=== PATIENT | female | born 1945 | race Caucasian/White ===

== ENCOUNTER 2018-05-28 13:46 | Emergency (ER) | payer MEDICARE ==
[~2018-05-28] VITALS: Ht 162.6 cm; Wt 99.8 kg
[2018-05-28 15:21] LABS: BASOPHILS # (AUTO) 0.1 (0.0-0.1); BASOPHILS % 0.6 % (0.0-1.0); EOSINOPHILS # (AUTO) 0.3 (0.0-0.4); EOSINOPHILS % 2.3 % (0.0-6.0); HEMATOCRIT 49.1 % (34.2-44.1); HEMOGLOBIN 15.8 g/dL (12.0-16.0); LYMPHOCYTES # (AUTO) 2.4 (1.0-3.2); LYMPHOCYTES % 20.4 % (18.0-39.1); MEAN CORPUSCULAR HEMOGLOBIN 29.6 pg (28-32); MEAN CORPUSCULAR HGB CONC 32.2 g/dL (31-35); MEAN CORPUSCULAR VOLUME 91.9 fL (81-99); MONOCYTES # (AUTO) 0.8 (0.2-0.8); MONOCYTES % 6.5 % (4.4-11.3); NEUTROPHILS # (AUTO) 8.2 (2.1-6.9); NEUTROPHILS % 69.9 % (38.7-80.0); PLATELET COUNT 272 x10e3/uL (140-360); RED BLOOD COUNT 5.34 x10e6/uL (3.6-5.1); RED CELL DISTRIBUTION WIDTH 13.1 % (11.7-14.4)
[2018-05-28 15:38] LABS: ALBUMIN 3.7 g/dL (3.5-5.0); ALBUMIN/GLOBULIN RATIO 0.9 (0.8-2.0); ANION GAP 16.7 mmol/L (8-16); CALCIUM 9.6 mg/dL (8.4-10.2); CREATININE, SERUM 1.02 mg/dL (0.57-1.11); POTASSIUM 3.7 mmol/L (3.5-5.1)
[2018-05-28 17:20] LABS: CLARITY,URINE CLOUDY (CLEAR); COLOR,URINE YELLOW (YELLOW); LEUKOCYTE ESTERASE ,URINE 2+ (NEGATIVE); NITRITE,URINE POSITIVE (NEGATIVE); PROTEIN,URINE DIPSTICK NEGATIVE (NEGATIVE)
[2018-05-28 17:21] LABS: BILIRUBIN,URINE NEGATIVE (NEGATIVE); KETONES,URINE NEGATIVE (NEGATIVE); URINE UROBILINOGEN 0.2 mg/dL (0.2 - 1)
[2018-05-28 17:30] LABS: BACTERIA,URINE MANY /HPF; EPITHELIAL CELLS,URINE MODERATE /LPF; RBC,URINE >50 /HPF (0-5); WBC,URINE (MAN) >50 /HPF (0-5)
[2018-05-28] MEDS ORDERED: CEFTRIAXONE SOD 1 GM VIAL IV ONE (17:45)
--- NOTE | 2018-05-28 18:33 | Diagnostic Imaging Report ---
EXAM: CT Abdomen and Pelvis WITHOUT contrast INDICATION: Right flank pain. COMPARISON: None. TECHNIQUE: Abdomen and pelvis were scanned utilizing a multidetector helical scanner from the lung base to the pubic symphysis without administration of IV contrast. Absence of intravenous contrast decreases sensitivity for detection of focal lesions and vascular pathology. Coronal and sagittal reformations were obtained. Routine protocol was performed. IV CONTRAST: None. ORAL CONTRAST: Water RADIATION DOSE: Total DLP: 911.95 mGy*cm Estimated effective dose: (DLP x 0.015 x size factor) mSv COMPLICATIONS: None FINDINGS: LINES and TUBES: None. LOWER THORAX: Coronary artery and aortic valve calcifications. Mild bibasilar subsegmental atelectasis. HEPATOBILIARY: Hepatic steatosis. No focal hepatic lesions. No biliary ductal dilation. GALLBLADDER: No radio-opaque stones or sludge. No wall thickening. SPLEEN: No splenomegaly. PANCREAS: No focal masses or ductal dilatation. ADRENALS: 1.4 cm left adrenal adenoma. No right adrenal nodules KIDNEYS/URETERS: No Mildly prominent right external pelvis versus pelviectasis without ureteral dilatation. Right renal cysts, the largest in the anterior interpolar region measuring 4.9 cm. No stones. GI TRACT: No abnormal distention, wall thickening, or evidence of bowel obstruction. Appendix is normal. PELVIC ORGANS/BLADDER: Calcified uterine leiomyoma. LYMPH NODES: No lymphadenopathy. VESSELS: There is moderate atherosclerotic disease in the aorta and major arterial branches. PERITONEUM / RETROPERITONEUM: No free air or fluid. BONES: There are degenerative changes in the lumbar spine. Dextroscoliosis of the lumbar spine. Remote healed right-sided rib fracture. SOFT TISSUES: Unremarkable. IMPRESSION: 1. Mild dilatation of the left renal pelvis without ureteral dilatation may represent a prominent extrarenal pelvis versus mild pelviectasis. No definite ureteral calculus. Signed by: Dr. Alba Mccauley M.D. on 05/28/2018 6:21 PM
== END 2018-05-28 19:27 | disposition home or self-care (01) ==
LOC: ER 13:46
DX: M54.5 Low back pain (principal); R10.9 Unspecified abdominal pain; R11.0 Nausea; N30.91 Cystitis, unspecified with hematuria; I10 Essential (primary) hypertension; E78.5 Hyperlipidemia, unspecified
CPT/HCPCS: 36415; 74176; 80053; 81001; 85025; 87086; 87186; 99284; J0696

== ENCOUNTER 2020-08-02 13:00 | Emergency (ER) | payer MEDICARE ==
[~2020-08-02] VITALS: Ht 162.6 cm; Wt 99.8 kg
--- NOTE | 2020-08-02 13:25 | NUR ---
off o2 at this time per dr. larose.
[2020-08-02 13:27] LABS: BASOPHILS # (AUTO) 0.1 (0.0-0.1); BASOPHILS % 0.7 % (0.0-1.0); EOSINOPHILS # (AUTO) 0.1 (0.0-0.4); EOSINOPHILS % 1.4 % (0.0-6.0); HEMATOCRIT 44.2 % (34.2-44.1); HEMOGLOBIN 14.1 g/dL (12.0-16.0); LYMPHOCYTES # (AUTO) 1.1 (1.0-3.2); LYMPHOCYTES % 10.9 % (18.0-39.1); MEAN CORPUSCULAR HEMOGLOBIN 29.6 pg (28-32); MEAN CORPUSCULAR HGB CONC 31.9 g/dL (31-35); MEAN CORPUSCULAR VOLUME 92.9 fL (81-99); MONOCYTES # (AUTO) 0.7 (0.2-0.8); MONOCYTES % 6.4 % (4.4-11.3); NEUTROPHILS # (AUTO) 8.2 (2.1-6.9); NEUTROPHILS % 80.2 % (38.7-80.0); PLATELET COUNT 200 x10e3/uL (140-360); RED BLOOD COUNT 4.76 x10e6/uL (3.6-5.1); RED CELL DISTRIBUTION WIDTH 13.4 % (11.7-14.4)
[2020-08-02] MEDS ORDERED: ASPIRIN 81 MG CHEW TAB PO ONE (13:30)
--- NOTE | 2020-08-02 13:31 | NUR ---
placed back on 02; sats down to 87% on room air.
[2020-08-02 13:47] LABS: INR 0.93; PROTHROMBIN TIME 12.9 seconds (11.9-14.5)
[2020-08-02] MEDS ORDERED: SODIUM CHLORIDE 0.9% 1000ML 1,000 ML IV STA (13:47)
[2020-08-02 13:49] LABS: ALBUMIN 3.4 g/dL (3.5-5.0); ANION GAP 16.5 mmol/L (8-16); CALCIUM 8.8 mg/dL (8.4-10.2); CREATININE, SERUM 1.17 mg/dL (0.57-1.11); POTASSIUM 3.5 mmol/L (3.5-5.1)
[2020-08-02 13:52] LABS: B-TYPE NATRIURETIC PEPTIDE2 284.3 pg/mL (0-100)
[2020-08-02 13:55] LABS: CREATINE KINASE MB 1.6 ng/mL (0-5.0)
[2020-08-02] MEDS ORDERED: AZITHROMYCIN 500MG/NS 250 ML 250 ML IV SCH (14:00)
[2020-08-02] MEDS ORDERED: CEFTRIAXONE SOD 1 GM/NS 50 ML 50 ML IV SCH (14:00)
--- NOTE | 2020-08-02 14:22 | Diagnostic Imaging Report ---
EXAMINATION: CHEST SINGLE (PORTABLE) INDICATION: SHORT OF BREATH COMPARISON: None FINDINGS: TUBES and LINES: None. LUNGS: Normal lung volumes. Lungs are clear. No consolidations. PLEURA: No pleural effusion or pneumothorax. HEART AND MEDIASTINUM: There is curvilinear high density structure in the right paramediastinum. Atherosclerotic calcification of the thoracic aortic knob. BONES AND SOFT TISSUES: No acute osseous lesion. Soft tissues are unremarkable. UPPER ABDOMEN: No free air under the diaphragm. IMPRESSION: 1. Curvilinear high density structure in the right paramediastinum which may represent thoracic aortic aneurysm. Recommend contrast-enhanced CT of the chest for further evaluation. 2. No focal consolidation, pleural effusion or pneumothorax. Signed by: Sergio Warren MD on 08/02/2020 2:19 PM
--- NOTE | 2020-08-02 14:29 | Emergency Department Note ---
History of Present Illnes History of Present Illness Chief Complaint: Respiratory History of Present Illness This is a 75 year old female 3 DAYS INCREASING SHORTNESS OF BREATH. DENIES ANY CHEST PAIN, N/V. PER EMS 93-94% RA. ON ARRIVAL 98% ON 2L/NC. PATIENT COMPLETING SENTENCES WITHOUT DIFFICULTY. NO USE OF ACCESSORY MUSCLES. SHE ALSO REPORTS URINARY FREQUENCY AND DYSURIA AND HAD A VIDEO VISIT WITH PCP YESTERDAY WHO STARTED HER ON ANTIBIOTICS FOR A UTI. Historian: Patient, Api Product Manager/EMS Arrival Mode: [facility] EMS Treatment EXTRUSION DIE REPAIR MANAGER: O2, EKG Additional Treatment EXTRUSION DIE REPAIR MANAGER: NONE Power Plant Manager Required: No Onset (how long ago): day(s) (3) Location: LUNGS Quality: SOB, BOWEN Radiation: Reports non-radiation Severity: moderate Onset quality: gradual Timing of current episode: constant Progression: waxing and waning Chronicity: new Context: Denies recent illness Relieving factors: none Exacerbating factors: none Associated symptoms: Reports denies other symptoms Past Medical/Family History Physician Review I have reviewed the patient's past medical and family history. Any updates have been documented here. Past Medical History Recent Fever: No Clinical Suspicion of Infectio: No New/Unexplained Change in Ment: No Past Medical History: Hypertension, Kidney Stones, Hyperlipedemia Other Medical History: RESTLESS LEGS BLADDER INCONTINENCE Past Surgical History: T&A, Tubal Ligation, Knee Replacement Other Surgery: BILATERAL KNEE REPLACEMENT LEFT LEG SKIN GRAFT Social History Smoking Cessation: Never Smoker Counseling Performed: No Alcohol Use: None Any Illegal Drug Use: No TB Exposure/Symptoms: No Physically hurt or threatened: No Family History Family history of heart diseas: No Other Last Tetanus: UTD Any Pre-Existing Lines (PICC,: No Review of Systems Review of Systems Constitutional: Reports no symptoms EENTM: Reports no symptoms Cardiovascular: Reports edema Respiratory: Reports as per HPI, Reports dyspnea, Reports dyspnea on exertion; Denies chest congestion, Denies cough Gastrointestinal: Reports no symptoms Genitourinary: Reports as per HPI, Reports dysuria, Reports frequency Musculoskeletal: Reports no symptoms Integumentary: Reports no symptoms Neurological: Reports no symptoms Psychological: Reports no symptoms Endocrine: Reports no symptoms Hematological/Lymphatic: Reports no symptoms Physical Exam Related Data Allergies: Coded Allergies: No Known Allergies (Unverified , 05/28/18) Triage Vital Signs Vital Signs Date Time Temp Pulse Resp B/P (MAP) Pulse Ox O2 Delivery O2 Flow Rate FiO2 08/02/20 13:01 98.1 77 18 86/61 98 Nasal Cannula 2.0 Vital signs reviewed: Yes Physical Exam CONSTITUTIONAL Constitutional: Present well-developed, Present well-nourished, Present morbidl y obese HENT HENT: Present normocephalic, Present atraumatic, Present oropharynx clear/moist, Present oropharynx normal, Present nose normal HENT L/R: Present left ext ear normal, Present right ext ear normal EYES Eyes: Reports PERRL, Reports conjunctivae normal NECK Neck: Present ROM normal PULMONARY Pulmonary: Present effort normal, Present breath sounds normal CARDIOVASCULAR Cardiovascular: Present regular rhythm, Present heart sounds normal, Present capillary refill normal, Present normal rate, Present LLE edema (2+), Present RLE edema (2+) GASTROINTESTINAL Abdominal: Present soft, Present nontender, Present bowel sounds normal GENITOURINARY Genitourinary: Present exam deferred SKIN Skin: Present warm, Present dry MUSCULOSKELETAL Musculoskeletal: Present ROM normal, Present edema NEUROLOGICAL Neurological: Present alert, Present oriented x 3, Present no gross motor or sensory deficits PSYCHOLOGICAL Psychological: Present mood/affect normal, Present judgement normal Results Laboratory Result Diagram: 08/02/20 1309 08/02/20 1309 Laboratory Laboratory Tests Test 08/02/20 14:20 08/02/20 13:30 08/02/20 13:09 White Blood Count 10.23 x10e3/uL (4.8-10.8) Red Blood Count 4.76 x10e6/uL (3.6-5.1) Hemoglobin 14.1 g/dL (12.0-16.0) Hematocrit 44.2 % (34.2-44.1) Mean Corpuscular Volume 92.9 fL (81-99) Mean Corpuscular Hemoglobin 29.6 pg (28-32) Mean Corpuscular Hemoglobin Concent 31.9 g/dL (31-35) Red Cell Distribution Width 13.4 % (11.7-14.4) Platelet Count 200 x10e3/uL (140-360) Neutrophils (%) (Auto) 80.2 % (38.7-80.0) Lymphocytes (%) (Auto) 10.9 % (18.0-39.1) Monocytes (%) (Auto) 6.4 % (4.4-11.3) Eosinophils (%) (Auto) 1.4 % (0.0-6.0) Basophils (%) (Auto) 0.7 % (0.0-1.0) Neutrophils # (Auto) 8.2 (2.1-6.9) Lymphocytes # (Auto) 1.1 (1.0-3.2) Monocytes # (Auto) 0.7 (0.2-0.8) Eosinophils # (Auto) 0.1 (0.0-0.4) Basophils # (Auto) 0.1 (0.0-0.1) Absolute Immature Granulocyte (auto 0.04 x10e3/uL (0-0.1) Prothrombin Time 12.9 seconds (11.9-14.5) Prothromb Time International Ratio 0.93 Activated Partial Thromboplast Time 27.2 seconds (23.8-35.5) Sodium Level 142 mmol/L (136-145) Potassium Level 3.5 mmol/L (3.5-5.1) Chloride Level 105 mmol/L (98-107) Carbon Dioxide Level 24 mmol/L (22-29) Anion Gap 16.5 mmol/L (8-16) Blood Urea Nitrogen 30 mg/dL (7-26) Creatinine 1.17 mg/dL (0.57-1.11) Estimat Glomerular Filtration Rate 45 ML/MIN (60-) BUN/Creatinine Ratio 26 (6-25) Glucose Level 128 mg/dL (74-118) Lactic Acid Level 2.6 mmol/L (0.5-2.0) Calcium Level 8.8 mg/dL (8.4-10.2) Total Bilirubin 0.4 mg/dL (0.2-1.2) Aspartate Amino Transf (AST/SGOT) 24 IU/L (5-34) Alanine Aminotransferase (ALT/SGPT) 21 IU/L (0-55) Alkaline Phosphatase 94 IU/L (40-150) Creatine Kinase 62 IU/L (29-168) Creatine Kinase MB 1.60 ng/mL (0-5.0) Troponin I 0.028 ng/mL (0-0.300) B-Type Natriuretic Peptide 284.3 pg/mL (0-100) Total Protein 6.9 g/dL (6.5-8.1) Albumin 3.4 g/dL (3.5-5.0) Globulin 3.5 g/dL (2.3-3.5) Albumin/Globulin Ratio 1.0 (0.8-2.0) Lab results reviewed: Yes Imaging Imaging results reviewed: Yes Impressions EXAMINATION: CHEST SINGLE (PORTABLE) INDICATION: SHORT OF BREATH COMPARISON: None FINDINGS: TUBES and LINES: None. LUNGS: Normal lung volumes. Lungs are clear. No consolidations. PLEURA: No pleural effusion or pneumothorax. HEART AND MEDIASTINUM: There is curvilinear high density structure in the right paramediastinum. Atherosclerotic calcification of the thoracic aortic knob. BONES AND SOFT TISSUES: No acute osseous lesion. Soft tissues are unremarkable. UPPER ABDOMEN: No free air under the diaphragm. IMPRESSION: 1. Curvilinear high density structure in the right paramediastinum which may represent thoracic aortic aneurysm. Recommend contrast-enhanced CT of the chest for further evaluation. 2. No focal consolidation, pleural effusion or pneumothorax. Signed by: Sergio Warren MD on 08/02/2020 2:19 PM EXAM: CT Chest WITH contrast 08/02/2020 3:15 PM INDICATION: Dyspnea and chest pain. COMPARISON: Same day chest radiograph. TECHNIQUE: Chest was scanned utilizing a multidetector helical scanner from the lung apex through the level of the adrenal glands with administration of IV contrast. Coronal and sagittal reformations were obtained. Routine protocol was performed. IV CONTRAST: 100 mL of Omnipaque 300 COMPLICATIONS: None RADIATION DOSE: Total DLP: 472 mGy*cm Estimated effective dose: (DLP x 0.014 x size factor) mSv CTDIvol has been reviewed. It is below the limits set by the Radiation Protocol Committee (RPC). Dose modulation, iterative reconstruction, and/or weight based adjustment of the mA/kV was utilized to reduce the radiation dose to as low as reasonably achievable. FINDINGS: VASCULAR: There are filling defects which extend from the distal right and left main pulmonary arteries into bilateral upper and lower lobe segmental and subsegmental divisions. The right ventricle is enlarged compared to the left ventricle with mild left flores bowing of the interventricular septum. The pulmonary trunk has normal caliber measuring 2.4 cm. The ascending and descending aorta has extensive atherosclerotic calcification with normal caliber measuring 3.1 cm and 2.7 cm, respectively. LINES/ TUBES: None. LUNGS AND AIRWAYS: There are multiple scattered less than 4 mm pulmonary nodules. Airways are normal. No focal consolidation. No large pulmonary mass. PLEURA: The pleural spaces are clear. HEART AND MEDIASTINUM: The thyroid gland is normal. No mediastinal, hilar or axillary lymphadenopathy. The heart is normal in size. There is no pericardial effusion. There are significant atherosclerotic calcifications in the aorta and coronary arteries. There is aortic annular calcification. UPPER ABDOMEN: Atherosclerotic calcification of the proximal abdominal aorta. The remainder of the imaged upper abdomen is within normal limits. BONES: There are degenerative changes in the thoracic spine with diffuse etiopathic skeletal hyperostosis. SOFT TISSUES: Unremarkable. IMPRESSION: 1. Pulmonary embolism extending from the distal bilateral main pulmonary arteries into the segmental and subsegmental divisions, and associated findings compatible with right heart strain. 2. Curvilinear hyperdensity seen on recent chest radiograph corresponds to tortuous course of the ascending aorta with severe atherosclerotic calcification. No evidence of thoracic aortic aneurysm. 3. Multiple scattered less than 4 mm pulmonary nodules. If patient is low risk for lung cancer, no additional follow-up is indicated. However, if patient is high risk for lung cancer, follow-up chest CT in 12 months should be considered. Critical findings were discussed with Dr. Lott at 4:13 PM on 08/02/2020. Signed by: Sergio Warren MD on 08/02/2020 4:18 PM Procedures 12 Lead ECG Interpretation ECG Interpretation : ECG: ECG 1 Power Plant Manager: Interpreted by ED physician Date: Aug 02, 2020 Time: 13:08 Rhythm: sinus rhythm Rate: normal BPM: 76 QRS axis: normal ST segments normal: Yes T waves normal: Yes Clinical Impression: normal ECG Critical Care Time Total Critical Care Time (min): 55 Critical care time exclusive o: separately billable procedures Critcal care necessary due to: circulatory failure, respiratory failure, other (MASSIVE BILATERAL PULM EMBOLI) Critcal care time spent by me: discussion w consultants, discussion w primary provider, examination of patient, obtaining hx from patient/surrogate, order/perform tx or interventions, order/review laboratory studies, order/review radiographic studies, pulse oximetry, re-evaluation of patient condition Assessment & Plan Medical Decision Making MDM PT PRESENTS WITH SOB/BOWEN X 3 DAYS AND SOME URINARY COMPLAINTS ALSO. NO COUGH, NO CP, NO F/C - CHECK CBC, CHEM, UA/CX, BLOOD CX'S, LACTIC, ECG, CARDIACS, BNP, COVID SWAB, CXR, POSSIBLY CT CHEST - EVAL FOR CHF, PNEUMONIA, COVID, STEMI/NSTEMI, UTI, SEPSIS, RENAL INSUFF, PULM EMBOLUS Reassessment Reassessment PATIENT WITH UTI SOURCE. LACTIC >2. IVF'S GIVEN, BLOOD CX'S AND URINE CX SENT, ROCEPHIN GIVEN. WILL REPEAT LACTIC. CT SHOWS MASSIVE BILAT PE'S FROM BILAT DISTAL MAIN PULM AA TO ALL SEGMENTAL & SUBSEGMENTAL AA. AND CT EVIDENCE OF RIGHT HEART STRAIN. NO ICU BEDS AVAILABLE AND PT WOULD LIKELY BENEFIT FROM TRANSFER TO A FACILITY CAPABLE OF DOING CATH- DIRECTED THROMBOLYSIS. SCREW MACHINE REPAIRER INITIATED XFER TO [facility] BUT THEY ARE ON SATURATION, THERE IS A BED AVAILABLE [facility] - I SPOKE WITH DR CIARRA MORAN, CARDIOLOGY - SAYS THEY ARE ABLE TO DO CATH-DIRECTED THROMBOLYSIS AND FROM HER STANDPOINT WILL ACCEPT. I THEN CONFERENCED WITH MYA ROMERO (OPHTHALMIC AIDE) AND DIAMOND MCKAY (HOSPITALIST) AND PT IS ACCEPTED TO ICU BED. Assessment & Plan Final Impression: (1) Sepsis (2) UTI (urinary tract infection) (3) Dyspnea (4) Renal insufficiency (5) Pulmonary emboli Depart Disposition: TRANS TO OTHER [facility] FACILITY Last Vital Signs Date Time Temp Pulse Resp B/P (MAP) Pulse Ox O2 Delivery O2 Flow Rate FiO2 08/02/20 13:32 97.4 76 21 128/74 98 Nasal Cannula 3.0 Home Meds Reported Medications Furosemide (FUROSEMIDE) 20 Mg Tablet, 20 MG PRN 08/02/20 Pramipexole Di-Hcl (PRAMIPEXOLE DIHYDROCHLORIDE) 1 Mg Tablet, 1 MG HS 08/02/20 Atenolol (ATENOLOL) 50 Mg Tablet, 50 MG DAILY 08/02/20 Amlodipine Besylate (AMLODIPINE BESYLATE) 5 Mg Tablet, 5 MG DAILY 08/02/20 Levocetirizine Dihydrochloride (LEVOCETIRIZINE DIHYDROCHLORIDE) 5 Mg Tablet, 5 MG HS 08/02/20 Lisinopril (LISINOPRIL) 5 Mg Tablet, 5 MG DAILY 08/02/20 Oxybutynin Chloride (OXYBUTYNIN CHLORIDE ER) 5 Mg Tab.er.24, 5 MG DAILY 08/02/20 Pravastatin Sodium (PRAVASTATIN SODIUM) 40 Mg Tablet, 40 MG DAILY 08/02/20 Medications in the ED Aspirin 81 mg PRN ONCE PO ; Start 08/02/20 at 13:30; Stop 08/02/20 at 13:31; Status DC Sodium Chloride 1,000 ml @ 0 mls/hr Q0M STAT IV Last administered on at 14:15; Admin Dose 999 MLS/HR; Start 08/02/20 at 13:47; Stop 08/02/20 at 13:49; Status DC Ceftriaxone Sodium 50 ml @ 100 mls/hr Q24H IV Last administered on 08/02/20at 14:15; Admin Dose 100 MLS/HR; Start 08/02/20 at 14:00; Stop 08/09/20 at 13:59 Azithromycin 250 ml @ 200 mls/hr Q24H IV ; Start 08/02/20 at 14:00; Stop 08/09/20 at 13:59 FREEDOM LOTT MD Aug 02, 2020 14:29
[2020-08-02 14:36] LABS: CLARITY,URINE HAZY (CLEAR); COLOR,URINE YELLOW (YELLOW)
[2020-08-02 14:37] LABS: BILIRUBIN,URINE NEGATIVE (NEGATIVE); KETONES,URINE NEGATIVE (NEGATIVE); LEUKOCYTE ESTERASE ,URINE LARGE (NEGATIVE); NITRITE,URINE NEGATIVE (NEGATIVE); PROTEIN,URINE DIPSTICK 2+ (NEGATIVE); URINE UROBILINOGEN 0.2 mg/dL (0.2 - 1)
[2020-08-02 14:42] LABS: BACTERIA,URINE MODERATE /HPF; RBC,URINE 21-50 /HPF (0-5); WBC,URINE (MAN) >50 /HPF (0-5)
[2020-08-02 14:43] LABS: EPITHELIAL CELLS,URINE FEW /LPF; MUCUS,URINE FEW (RARE)
[2020-08-02] MEDS ORDERED: SODIUM CHLORIDE 0.9% 500ML 500 ML IV ONE (15:00)
[2020-08-02] MEDS ORDERED: SODIUM CHLORIDE 0.9% 50ML 50 ML ONE (15:13)
[2020-08-02] MEDS ORDERED: IOPAMIDOL 370 MG/ML 200 ML INFUS..BTL INJ ONE (15:14)
[2020-08-02] MEDS ORDERED: ONDANSETRON HCL INJ 2MG/ML 2ML 2 MG/ML VIAL IV PRN (15:30)
[2020-08-02] MEDS ORDERED: SODIUM CHLORIDE 0.9% 1000ML 1,000 ML IV SCH (15:30)
--- NOTE | 2020-08-02 15:52 | NUR ---
dr. larose in room with patient at this time re poc/admit to hospital
[2020-08-02] MEDS ORDERED: LEVOCETIRIZINE D5 MG (15:57)
[2020-08-02] MEDS ORDERED: OXYBUTYNIN CHLOR5 M1 (15:57)
[2020-08-02] MEDS ORDERED: LISINOPRIL5 MG (15:57)
[2020-08-02] MEDS ORDERED: FUROSEMIDE20 MG (15:57)
[2020-08-02] MEDS ORDERED: PRAMIPEXOLE DIHY1 MG (15:57)
[2020-08-02] MEDS ORDERED: PRAVASTATIN SOD40 MG (15:57)
[2020-08-02] MEDS ORDERED: ATENOLOL50 MG (15:57)
[2020-08-02] MEDS ORDERED: AMLODIPINE BESYL5 MG (15:57)
--- NOTE | 2020-08-02 15:57 | NUR ---
home med list obtained and entered into the computer
[2020-08-02] MEDS ORDERED: HEPARIN SOD (PORCINE) 5,000 UNIT/ML VIAL IV ONE (16:15)
[2020-08-02] MEDS ORDERED: HEPARIN 25,000 UNIT 1,300 UNIT in DEXTROSE 5% 250ML 250 ML IV SCH (16:15)
--- NOTE | 2020-08-02 16:15 | NUR ---
HEPARIN STARTED AND INFUSING WITH NO PROBLEMS
--- NOTE | 2020-08-02 16:21 | Diagnostic Imaging Report ---
EXAM: CT Chest WITH contrast 08/02/2020 3:15 PM INDICATION: Dyspnea and chest pain. COMPARISON: Same day chest radiograph. TECHNIQUE: Chest was scanned utilizing a multidetector helical scanner from the lung apex through the level of the adrenal glands with administration of IV contrast. Coronal and sagittal reformations were obtained. Routine protocol was performed. IV CONTRAST: 100 mL of Omnipaque 300 COMPLICATIONS: None RADIATION DOSE: Total DLP: 472 mGy*cm Estimated effective dose: (DLP x 0.014 x size factor) mSv CTDIvol has been reviewed. It is below the limits set by the Radiation Protocol Committee (RPC). Dose modulation, iterative reconstruction, and/or weight based adjustment of the mA/kV was utilized to reduce the radiation dose to as low as reasonably achievable. FINDINGS: VASCULAR: There are filling defects which extend from the distal right and left main pulmonary arteries into bilateral upper and lower lobe segmental and subsegmental divisions. The right ventricle is enlarged compared to the left ventricle with mild left flores bowing of the interventricular septum. The pulmonary trunk has normal caliber measuring 2.4 cm. The ascending and descending aorta has extensive atherosclerotic calcification with normal caliber measuring 3.1 cm and 2.7 cm, respectively. LINES/ TUBES: None. LUNGS AND AIRWAYS: There are multiple scattered less than 4 mm pulmonary nodules. Airways are normal. No focal consolidation. No large pulmonary mass. PLEURA: The pleural spaces are clear. HEART AND MEDIASTINUM: The thyroid gland is normal. No mediastinal, hilar or axillary lymphadenopathy. The heart is normal in size. There is no pericardial effusion. There are significant atherosclerotic calcifications in the aorta and coronary arteries. There is aortic annular calcification. UPPER ABDOMEN: Atherosclerotic calcification of the proximal abdominal aorta. The remainder of the imaged upper abdomen is within normal limits. BONES: There are degenerative changes in the thoracic spine with diffuse etiopathic skeletal hyperostosis. SOFT TISSUES: Unremarkable. IMPRESSION: 1. Pulmonary embolism extending from the distal bilateral main pulmonary arteries into the segmental and subsegmental divisions, and associated findings compatible with right heart strain. 2. Curvilinear hyperdensity seen on recent chest radiograph corresponds to tortuous course of the ascending aorta with severe atherosclerotic calcification. No evidence of thoracic aortic aneurysm. 3. Multiple scattered less than 4 mm pulmonary nodules. If patient is low risk for lung cancer, no additional follow-up is indicated. However, if patient is high risk for lung cancer, follow-up chest CT in 12 months should be considered. Critical findings were discussed with Dr. Nieves at 4:13 PM on 08/02/2020. Signed by: Sergio Warren MD on 08/02/2020 4:18 PM
[2020-08-02] MEDS ORDERED: HEPARIN 25,000 UNIT DRIP IV ONE (16:27)
--- NOTE | 2020-08-02 17:01 | NUR ---
PT TX TO [facility] INITIATED
--- NOTE | 2020-08-02 17:44 | NUR ---
report called to marguerite blackwood for this patient to go to [phone] at [facility]-[phone]
--- NOTE | 2020-08-02 17:45 | NUR ---
[facility] called and spoke to roman; eta approx. 15min.
--- NOTE | 2020-08-02 18:19 | NUR ---
emiliana-data warehouse specialist;[phone] notified of eta. approx 12min
[2020-08-03] MEDS ORDERED: ASPIRIN 81 MG ENTERIC COATED PO SCH (09:00)
== END 2020-08-02 18:30 | disposition other institution (70) ==
LOC: ER 13:03 → UNDOADMIN 13:11 → ERHOLD 13:11 → UNDODISIN 19:00
DX: A41.9 Sepsis, unspecified organism (principal); R06.00 Dyspnea, unspecified; I26.99 Other pulmonary embolism without acute cor pulmonale; N39.0 Urinary tract infection, site not specified; N28.9 Disorder of kidney and ureter, unspecified; Z11.59 Encounter for screening for other viral diseases; I10 Essential (primary) hypertension; E78.5 Hyperlipidemia, unspecified; Z96.653 Presence of artificial knee joint, bilateral
CPT/HCPCS: 36415; 71045; 71260; 80053; 81001; 82550; 82553; 83605; 83880; 84484; 85025; 85610; 85730; 87040; 87086; 93005; 99284; J0456; J0696; J1644; J7030; Q9967; U0002

== ENCOUNTER → 2020-09-04 | Outpatient (CLI) | payer MEDICARE ==
[~2020-09-04] MED LIST: AMLODIPINE BESYL5 MG; ATENOLOL50 MG; FUROSEMIDE20 MG; LEVOCETIRIZINE D5 MG; LISINOPRIL5 MG; OXYBUTYNIN CHLOR5 M1; PRAMIPEXOLE DIHY1 MG; PRAVASTATIN SOD40 MG
== END ==
LOC: SLEEP 19:19
PROVIDERS: ATTEND Internal Medicine Pulmonary Disease
DX: G47.33 Obstructive sleep apnea (adult) (pediatric) (principal); Z20.828 Contact with and (suspected) exposure to other viral communicable diseases
CPT/HCPCS: U0002

== ENCOUNTER → 2023-02-24 | Day surgery (SDC) | payer MEDICARE, OTHER ==
[2023-02-21 14:52] LABS: BASOPHILS # (AUTO) 0.1 (0.0-0.1); BASOPHILS % 0.6 % (0.0-1.0); EOSINOPHILS # (AUTO) 0.5 (0.0-0.4); EOSINOPHILS % 4.7 % (0.0-6.0); HEMATOCRIT 45.1 % (34.2-44.1); HEMOGLOBIN 14.2 g/dL (12.0-16.0); LYMPHOCYTES # (AUTO) 3.2 (1.0-3.2); LYMPHOCYTES % 31.8 % (18.0-39.1); MEAN CORPUSCULAR HEMOGLOBIN 30.1 pg (28-32); MEAN CORPUSCULAR HGB CONC 31.5 g/dL (31-35); MEAN CORPUSCULAR VOLUME 95.8 fL (81-99); MONOCYTES # (AUTO) 0.8 (0.2-0.8); MONOCYTES % 7.9 % (4.4-11.3); NEUTROPHILS # (AUTO) 5.4 (2.1-6.9); NEUTROPHILS % 54.7 % (38.7-80.0); PLATELET COUNT 194 x10e3/uL (140-360); RED BLOOD COUNT 4.71 x10e6/uL (3.6-5.1); RED CELL DISTRIBUTION WIDTH 13.2 % (11.7-14.4)
[2023-02-21 15:08] LABS: ANION GAP 15.5 mmol/L (8-16); CALCIUM 9.4 mg/dL (8.4-10.2); CREATININE, SERUM 0.83 mg/dL (0.57-1.11); POTASSIUM 4.5 mmol/L (3.5-5.1)
[~2023-02-24] MED LIST changes: +BALANCED SALT SOLN (OPTH) 15 ML BTL IO ONE; +BUPIVACAINE HC 0.75% PF 10ML VIAL INJ ONE; +EPINEPHRINE HCL 1:1000 1ML 1 MG/ML AMP ONE; +KETAMINE HCL INJ 50 MG/ML 10 ML VIAL ONE; +LACTATED RINGER'S 1,000 ML ONE; +LIDOCAINE HCL 2% LOCAL INJ 5 ML SDV VIAL INJ ONE; +PHENYLEPHRINE HCL 2 ML DROPS ONE; +POVIDONE IODINE 0.05% 0.05 % ML PO ONE; +POVIDONE IODINE 5% (OPTH) 30 ML BTL ONE; +PROPOFOL IV EMULSION 10 MG/ML 20 ML VIAL ONE; +TOBRAMYCIN/DEXAMETHASONE(OPTH) 3.5 GM TUBE ONE; +ZESTRIL10 MG PO
[2023-02-24 13:50] VITALS: TEMP 97.6
[2023-02-24 14:20] VITALS: BP 122/50; PULSE 84; RESP 16; O2SAT 98
== END | disposition home or self-care (01) ==
LOC: OR 09:46
PROVIDERS: ATTEND Ophthalmology
DX: H25.11 Age-related nuclear cataract, right eye (principal); I10 Essential (primary) hypertension; E78.5 Hyperlipidemia, unspecified; E66.01 Morbid (severe) obesity due to excess calories; Z01.810 Encounter for preprocedural cardiovascular examination; Z01.812 Encounter for preprocedural laboratory examination; Z79.899 Other long term (current) drug therapy; Z86.73 Personal history of transient ischemic attack (TIA), and cerebral infarction without residual deficits; Z85.3 Personal history of malignant neoplasm of breast
CPT/HCPCS: 36415; 80048; 85025; 93005; J0171; J2001; V2632